=== PATIENT | male | born 1965 | race Caucasian/White ===

== ENCOUNTER 2017-03-02 19:12 | Inpatient (IN) | payer OTHER ==
[~2017-03-02] VITALS: Ht 188 cm; Wt 113.5 kg
[2017-03-02 19:13] VITALS: BP 176/93; PULSE 109; RESP 16; TEMP 99; O2SAT 100
[2017-03-02 20:48] LABS: AUTOMATED NEUTROPHIL # 4.9 TH/MM3 (1.8-7.7); BASOPHIL % 0.5 % (0.0-2.0); EOSINOPHIL # 0.2 TH/MM3 (0-0.4); EOSINOPHIL % 2.6 % (0.0-4.0); HEMATOCRIT 29.9 % (39.0-51.0); LYMPH % 18.9 % (9.0-44.0); LYMPHOCYTE # 1.4 TH/MM3 (1.0-4.8); MEAN CELL VOLUME 94.4 FL (80.0-100.0); MEAN CORPUSCULAR HEMOGLOBIN 32.5 PG (27.0-34.0); MEAN CORPUSCULAR HGB CONC 34.4 % (32.0-36.0); MONO % 10.2 % (0.0-8.0); NEUT % 67.8 % (16.0-70.0); PLATELET COUNT 144 TH/MM3 (150-450); RED BLOOD COUNT 3.17 MIL/MM3 (4.50-5.90); RED CELL DISTRIBUTION WIDTH 13.7 % (11.6-17.2); WHITE BLOOD COUNT 7.2 TH/MM3 (4.0-11.0)
[2017-03-02 20:51] LABS: HEMO FLAGS AUTO DIFF
--- NOTE | 2017-03-02 21:00 | RADRPT ---
EXAM DATE/TIME: 03/02/2017 20:33 [place] COMPARISON: No previous studies available for comparison. INDICATIONS : Left leg swelling and pain. MEDICAL HISTORY : Poisonous snake bite to left lateral calf x 1 wk ago. SURGICAL HISTORY : None. ENCOUNTER: Initial ACUITY: 1 week PAIN SCORE: 10/10 LOCATION: Left leg. TECHNIQUE: Venous ultrasound of the leg was performed from the inguinal ligament to the proximal calf. Real-rafael e, color Doppler and spectral tracing, compression and augmentation techniques were used. FINDINGS: There is normal compressibility of the deep venous system from the inguinal region to the proximal ca lf. No echogenic clot is seen in the lumen of the common femoral, femoral, popliteal, and posterior tibial veins. There is a normal response of the venous system to proximal and distal augmentation an d respiration. Diffuse subcutaneous edema noted of the left lower extremity. There are left inguinal lymph nodes tameka suring up to 8 x 15 x 23 mm. CONCLUSION: No DVT of the left lower extremity. Dwain Morrison MD on March 02, 2017 at 20:57 Board Certified Radiologist. This report was verified electronically.
--- NOTE | 2017-03-02 21:02 | PD ---
HPI Chief Complaint: Bite or Sting Time Seen by Provider: 19:33 Travel History International Travel<30 days: No Contact w/Intl Traveler<30days: No Traveled to known affect area: No History of Present Illness HPI So 51-year-old man, presents emergency department with worsening left leg pain swelling ecchymosis and bruising. States she was bit by a snake on February 22. He believes it was a rattlesnake. He was admitted to [facility] where he received treatment including 28 vials of CroFab. He was hospitalized for about 3-1/2 days or so. He was discharged about 5 days ago. He states since discharge he's had swelling is been waxing and waning. He's had worsening ecchymosis and bruising spreading up the leg. He developed a couple blisters that have been weeping. Pain is been pretty persistent and severe. He is worried that symptoms may been worsening and so he went to an urgent care today who referred him to the emergency department. He does endorse some subjective fevers last night. He's had some low back pains he thinks may be from being in bed for so long. History Past Medical History Medical History: Denies Significant Hx Social History Alcohol Use: Yes Tobacco Use: No Allergies-Medications (Allergen,Severity, Reaction): Coded Allergies: No Known Allergies (Unverified , 03/02/17) Review of Systems Except as stated in HPI: all other systems reviewed are Neg Physical Exam Narrative GENERAL: 31-year-old man, generally well-appearing. SKIN: Focused skin assessment warm/dry. Multiple areas of ecchymosis including the upper extremities which she attributes to previous IVs. He also has ecchymosis petechiae and swelling in the lower extremities detailed below. HEAD: Atraumatic. Normocephalic. EYES: Pupils equal and round. No scleral icterus. No injection or drainage. ENT: No nasal bleeding or discharge. Mucous membranes pink and moist. NECK: Trachea midline. No JVD. CARDIOVASCULAR: Regular rate and rhythm. No murmur appreciated. RESPIRATORY: No accessory muscle use. Clear to auscultation. Breath sounds equal bilaterally. GASTROINTESTINAL: Abdomen soft, non-tender, nondistended. Hepatic and splenic margins not palpable. MUSCULOSKELETAL: Obvious swelling and asymmetry of the left lower extremity. He is ecchymosis and bruising of the calf, as well as spreading up to the medial thigh and a little bit less on the lateral thigh. There is sluggish capillary refill in the left lower extremity about the foot. There is pitting edema and pulses are difficult to palpate. He has tenderness in the foot and the calf. He has strength in plantar and dorsiflexion of the foot that appears to be full although maybe a little bit limited due to pain. There is some petechiae on the calf and meade as well. There is a couple small areas of blistering on the distal posterior calf. Measurements include A: Midfoot 30 cm , B: Distal calf 29.5 cm, C: proximal calf 48.5 cm, D: Distal Thigh 57 cm. NEUROLOGICAL: Awake and alert. No obvious cranial nerve deficits. Motor grossly within normal limits. Normal speech. PSYCHIATRIC: Appropriate mood and affect; insight and judgment normal. Data Data Last Documented VS Vital Signs Date Time Temp Pulse Resp B/P Pulse Ox O2 Delivery O2 Flow Rate FiO2 03/02/17 19:13 99.0 109 16 176/93 100 Room Air Orders Complete Blood Count With Diff (03/02/17 19:46) Comprehensive Metabolic Panel (03/02/17 19:46) Act Partial Throm Time (Ptt) (03/02/17 19:46) Prothrombin Time / Inr (Pt) (03/02/17 19:46) Creatine Kinase (Cpk) (03/02/17 19:46) Fibrinogen (03/02/17 19:46) Iv Access Insert/Monitor (03/02/17 19:46) Us Leg Venous Doppler (03/02/17 ) Urinalysis - C+S If Indicated (03/02/17 19:47) Electrocardiogram (03/02/17 ) Fibrinogen (03/03/17 02:00) Complete Blood Count With Diff (03/03/17 02:00) Act Partial Throm Time (Ptt) (03/03/17 02:00) Prothrombin Time / Inr (Pt) (03/03/17 02:00) Sodium Chlor 0.9% 1000 Ml Inj (Ns 1000 M (03/02/17 21:30) Crotalidae Polyval Imm Jorge Inj (Crofab I (03/02/17 21:45) Labs Laboratory Tests Test 03/02/17 03/02/17 20:25 20:30 White Blood Count 7.2 TH/MM3 Red Blood Count 3.17 MIL/MM3 Hemoglobin 10.3 GM/DL Hematocrit 29.9 % Mean Corpuscular Volume 94.4 FL Mean Corpuscular Hemoglobin 32.5 PG Mean Corpuscular Hemoglobin 34.4 % Concent Red Cell Distribution Width 13.7 % Platelet Count 144 TH/MM3 Mean Platelet Volume 10.3 FL Neutrophils (%) (Auto) 67.8 % Lymphocytes (%) (Auto) 18.9 % Monocytes (%) (Auto) 10.2 % Eosinophils (%) (Auto) 2.6 % Basophils (%) (Auto) 0.5 % Neutrophils # (Auto) 4.9 TH/MM3 Lymphocytes # (Auto) 1.4 TH/MM3 Monocytes # (Auto) 0.7 TH/MM3 Eosinophils # (Auto) 0.2 TH/MM3 Basophils # (Auto) 0.0 TH/MM3 CBC Comment AUTO DIFF Differential Total Cells 100 Counted Neutrophils % (Manual) 60 % Band Neutrophils % 27 % Lymphocytes % 8 % Monocytes % 2 % Eosinophils % 1 % Neutrophils # (Manual) 6.4 TH/MM3 Metamyelocytes 1 % Myelocytes 1 % Nucleated Red Blood Cells 1 /100 WBC Differential Comment FINAL DIFF MANUAL Platelet Estimate LOW Platelet Morphology Comment NORMAL Prothrombin Time GREATER THAN 180.0 SEC Prothromb Time International GREATER THAN Ratio 14.9 RATIO Activated Partial GREATER THAN Thromboplast Time 277.5 SEC Sodium Level 138 MEQ/L Potassium Level 4.0 MEQ/L Chloride Level 102 MEQ/L Carbon Dioxide Level 26.0 MEQ/L Anion Gap 10 MEQ/L Blood Urea Nitrogen 13 MG/DL Creatinine 0.95 MG/DL Estimat Glomerular Filtration 84 ML/MIN Rate Random Glucose 100 MG/DL Calcium Level 8.8 MG/DL Total Bilirubin 2.3 MG/DL Aspartate Amino Transf 36 U/L (AST/SGOT) Alanine Aminotransferase 43 U/L (ALT/SGPT) Alkaline Phosphatase 54 U/L Total Creatine Kinase 229 U/L Total Protein 6.6 GM/DL Albumin 3.7 GM/DL Urine Color YELLOW Urine Turbidity CLEAR Urine pH 7.0 Urine Specific [place] 1.018 Urine Protein TRACE mg/dL Urine Glucose (UA) NEG mg/dL Urine Ketones NEG mg/dL Urine Occult Blood NEG Urine Nitrite NEG Urine Bilirubin NEG Urine Urobilinogen 8.0 MG/DL Urine Leukocyte Esterase NEG Urine RBC LESS THAN 1 /hpf Urine WBC 1 /hpf Urine Squamous Epithelial <1 /hpf Cells Urine Mucus FEW /lpf Microscopic Urinalysis Comment CULT NOT INDICATED MDM Medical Decision Making Medical Screen Exam Complete: Yes Emergency Medical Condition: Yes Medical Record Reviewed: Yes Interpretation(s) Previous labs: Platelet count was 178 on February 25 Hemoglobin was 11.9 on February 25 Fibrinogen was 2 51 mg/dL on February 25 Creatinine was 1.03 on February 25 CPK was 261 on February 22 PT was 12.7 seconds on February 25 PTT was 28.3 seconds on February 25 My review of EKG: Normal sinus rhythm at a rate of 73, incomplete right bundle branch block, normal axis, some inferior T-wave flattening and T-wave inversions , no definite evidence of acute ischemia. QRS 105, QTC 427. LABS: CBC remarkable for hemoglobin 10.3, white count 7.2 with 27% bandemia CMP is remarkable for total bili little bit elevated 2.3 Coags, PT, INR, APTT are off the chart UA has some bilirubin in the urine Ultrasounds negative for DVT. Differential Diagnosis Snake bite, hemolytic anemia, coagulopathy, rhabdomyolysis, compartment syndrome , other Narrative Course Medical decision making 51-year-old man, status post what appears to be a crotalid snakebite February 22. Treated with multiple vials of CroFab at [facility], discharged. I spoke with poison control, and with the on-call medical chemist. Or obtaining lab values. Patient will be monitored in the hospital. May need additional vials of CroFab if he has laboratory abnormalities. Elevate the leg. We'll get an ultrasound to rule out DVT. I don't see any evidence of infection. He is a lot of swelling that I don't think he has compartment syndrome at this point. We'll continue to monitor this. Critical Care Narrative Aggregate critical care time was 35 minutes. Time to perform other separately billable procedures was not included in the critical care time. My time did not include minutes spent treating any other patients simultaneously or on activities that did not directly contribute to the patient's treatment. The services I provided to this patient were to treat and/or prevent clinically significant deterioration that could result in: , rhabdo, compartment syndrome, loss of limb, worsening DIC I provided critical care services requiring my management, as noted below: Chart data review, documentation time, medication orders and management, vital sign assessments/reviewing monitor data, ordering and reviewing lab tests, ordering and interpreting/reviewing x-rays and diagnostic studies, care of the patient and discussion of the patient with the admitting physicians. Diagnosis Primary Impression: Snake bite Additional Impression: DIC (disseminated intravascular coagulation) Ifeanyi Gonzalez MD Mar 02, 2017 21:01
[2017-03-02 21:03] LABS: BLOOD, URINE NEG (NEG); COMMENT (UR) CULT NOT INDICATED; CULTURE IF INDICATED CULT NOT INDICATED; GLUCOSE,URINE NEG (NEG); KETONE, URINE NEG (NEG); MUCUS URINE FEW /lpf (OCC); NITRITE,URINE NEG (NEG); SQUAMOUS EPITHELIAL CELL URINE <1 /hpf (0-5); URINE COLOR YELLOW (YELLW/STRAW)
[2017-03-02 21:07] LABS: ALT (GPT) 43 U/L (12-78)
[2017-03-02 21:09] LABS: ALKALINE PHOSPHATASE 54 U/L (45-117); CREATINE KINASE 229 U/L (39-308); TOTAL BILIRUBIN ADULT 2.3 MG/DL (0.2-1.0)
[2017-03-02 21:25] LABS: ANION GAP 10 MEQ/L (5-15); AST (GOT) 36 U/L (15-37); BLOOD UREA NITROGEN 13 MG/DL (7-18); CHLORIDE 102 MEQ/L (98-107); GLOMERULAR FILTRATION RATE 84 ML/MIN (>89); SODIUM (NA) 138 MEQ/L (136-145)
[2017-03-02 21:27] LABS: BANDS 27 % (0-6); CORRECTED NUCLEATED RBC 1 /100 WBC (0-0); EOSINOPHILS 1 % (0-4); METAMYELOCYTES 1 % (0-1); MYELOCYTES 1 % (0-0); NEUTROPHIL # MANUAL DIFF 6.4 TH/MM3 (1.8-7.7); POLYS (SEG NEUTROPHILS) 60 % (16-70); WBC DIFF SAMPLE 100
[2017-03-02 21:29] LABS: PLATELET ESTIMATE SMEAR LOW (NORMAL); PLATELET MORPHOLOGY NORMAL (NORMAL); SCAN/DIFF FINAL DIFF MANUAL
[2017-03-02] MEDS ORDERED: SODIUM CHLOR 0.9% 1000 ML INJ 1,000 ML IV ONE (21:30)
[2017-03-02] MEDS ORDERED: CROTALIDAE FAB ANTIVENIN POLYVAL 1 GM VIAL IV ONE (21:45)
[2017-03-02 21:58] LABS: APTT (PATIENT) GREATER THAN 277.5 SEC (24.3-30.1); INTERNATIONAL NORMALIZED RATIO GREATER THAN 14.9 RATIO; PROTHROMBIN TIME - PATIENT GREATER THAN 180.0 SEC (9.8-11.6)
[2017-03-02] MEDS ORDERED: BUSP5TAB PO (22:27)
[2017-03-02] MEDS ORDERED: FAMO1TAB37 PO (22:27)
[2017-03-02] MEDS ORDERED: OXYC1TAB35 PO (22:27)
[2017-03-02 22:35] LABS: FIBRINOGEN LESS THAN 50 mg/dL (227-377)
[2017-03-02] MEDS ORDERED: MISCELLANEOUS NURSING INFORMATION XX SCH (22:45)
[2017-03-02] MEDS ORDERED: RESP: ALBUTEROL 2.5 MG/IPRATROPIUM 0.5 MG NEB (PRN) INH (22:45)
[2017-03-02] MEDS ORDERED: CHLORHEXIDINE GLUCONATE 2 % 1 PACK (2 CLOTHS) TOP PRN (22:45)
[2017-03-02] MEDS ORDERED: SODIUM CHLORIDE 0.9% FLUSH 10 ML FLUSH PRN (22:45)
[2017-03-02] MEDS ORDERED: BISACODYL 10 MG SUPP RECTAL PRN (22:45)
[2017-03-02] MEDS ORDERED: PROCHLORPERAZINE 25 MG SUPP RECTAL PRN (22:45)
[2017-03-02] MEDS ORDERED: ZOLPIDEM TARTRATE 5 MG TAB PO PRN (22:45)
[2017-03-02] MEDS ORDERED: METOCLOPRAMIDE HCL 10 MG/2 ML VIAL IV PRN (22:45)
[2017-03-02] MEDS ORDERED: MAGNESIUM HYDROXIDE SUSP 30 ML CUP PO PRN (22:45)
[2017-03-02] MEDS ORDERED: LACTULOSE SYRUP 20 GM/30 ML CUP PO PRN (22:45)
[2017-03-02] MEDS ORDERED: SENNOSIDES 8.6 MG TAB PO PRN (22:45)
--- NOTE | 2017-03-02 22:51 | HHI.HP ---
[facility] Service Critical Care Medicine Primary Care Physician [facility] Admission Diagnosis snake bite, DIC Diagnosis: Travel History International Travel<30 Days: No Contact w/Intl Traveler <30 Da: No Traveled to Known Affected Are: No History of Present Illness 51-year-old man without any significant past medical history, presents with worsening left leg pain swelling ecchymosis and bruising. He was bitten by a snake on February 22. He believes it was a rattlesnake. He was admitted to [facility] where he received treatment including 28 vials of CroFab. He was hospitalized for about 3-1/2 days or so and was discharged about 5 days ago. He states since discharge he's had swelling is been waxing and waning. He 's had worsening ecchymosis and bruising spreading up the leg. He developed a couple blisters that have been weeping. Pain is been pretty persistent and severe. In the emergency department his LFTs are elevated as well as coagulations and bilirubin. The Poison Control Center was contacted by ER attending with recommendations of another treatment with CroFab. Review of Systems Constitutional: COMPLAINS OF: Fatigue, DENIES: Diaphoretic episodes, Fever, Weight gain, Weight loss, Chills, Dizziness, Change in appetite, Night Sweats Endocrine: DENIES: Heat/cold intolerance, Polydipsia, Polyuria, Polyphagia Eyes: DENIES: Blurred vision, Diplopia, Eye inflammation, Eye pain, Vision loss , Photosensitivity, Double Vision Ears, nose, mouth, throat: DENIES: Tinnitus, Hearing loss, Vertigo, Nasal discharge, Oral lesions, Throat pain, Hoarseness, Ear Pain, Running Nose, Epistaxis, Sinus Pain, Toothache, Odynophagia Respiratory: DENIES: Apneas, Cough, Snoring, Wheezing, Hemoptysis, Sputum production, Shortness of breath Cardiovascular: DENIES: Chest pain, Palpitations, Syncope, Dyspnea on Exertion , PND, Lower Extremity Edema, Orthopnea, Claudication Genitourinary: DENIES: Sexual dysfunction, Urinary frequency, Urinary incontinence, Urgency, Hematuria, Dysuria, Nocturia, Penile Discharge, Testicular Pain, Testicular Swelling Musculoskeletal: COMPLAINS OF: Muscle aches, Joint Swelling, DENIES: Joint pain, Stiffness, Back pain, Neck pain Integumentary: DENIES: Abnormal pigmentation, Nail changes, Pruritus, Rash Hematologic/lymphatic: DENIES: Bruising, Lymphadenopathy Past Family Social History Allergies: Coded Allergies: No Known Allergies (Unverified , 03/02/17) Past Medical History None Past Surgical History None Reported Medications Reported Meds & Active Scripts Active Reported Pepcid (Famotidine) 20 Mg Tab 20 Mg PO BID Oxycodone-Acetaminophen 7.5-325 mg Tab 1 Tab PO Q6H PRN Buspirone (Buspirone HCl) 5 Mg Tab 5 Mg PO BID Active Ordered Medications Current Medications Medications (Trade) Dose Ordered Sig/Yasmin Route PRN Reason Start Time Stop Time Status Last Admin Dose Admin Buspirone HCl (Buspar) 5 mg BID PO 03/03/17 09:00 Famotidine 20 mg 20 mg BID PO 03/03/17 09:00 Sodium Chloride (NS 1000 ml Inj) 1,000 ml @ 84 mls/hr [id number] IV 03/02/17 22:44 03/02/17 23:30 Sodium Chloride (NS Flush) 2 ml UNSCH PRN .XX FLUSH AFTER USING IV ACCESS 03/02/17 22:45 Sodium Chloride (NS Flush) 2 ml BID .XX 03/03/17 09:00 Morphine Sulfate (Morphine Inj) 2 mg Q2H PRN IV PAIN SCALE 6 TO 10 03/02/17 22:45 Famotidine (Pepcid) 20 mg Q12HR PO 03/03/17 09:00 Ondansetron HCl (Zofran Inj) 4 mg Q6H PRN IV NAUSEA OR VOMITING 03/02/17 22:45 Metoclopramide HCl (Reglan Inj) 10 mg Q6H PRN IV NAUSEA OR VOMITING 03/02/17 22:45 Prochlorperazine (Compazine Supp) 25 mg Q12H PRN RECTAL NAUSEA OR VOMITING 03/02/17 22:45 Zolpidem Tartrate (Ambien) 5 mg HS PRN PO INSOMNIA 03/02/17 22:45 Heparin Sodium (Porcine) (Heparin Inj) 5,000 units Q12H SQ 03/02/17 23:00 Miscellaneous Information 1 [id number] XX 03/02/17 22:45 Chlorhexidine Gluconate (Chlorhexidine 2% Cloth) 3 pack Taper DAILY@04 TOP 03/03/17 04:00 02/27/18 03:59 Chlorhexidine Gluconate (Chlorhexidine 2% Cloth) 3 pack UNSCH PRN TOP HYGIENIC CARE 03/02/17 22:45 Senna/Docusate Sodium (Shari-Colace) 1 tab BID PO 03/03/17 09:00 Magnesium Hydroxide (Milk Of Magnesia Liq) 30 ml Q12H PRN PO MILD - MODERATE CONSTIPATION 03/02/17 22:45 Sennosides (Senokot) 17.2 mg Q12H PRN PO MODERATE - SEVERE CONSTIPATION 03/02/17 22:45 Bisacodyl (Dulcolax Supp) 10 mg DAILY PRN RECTAL SEVERE CONSITIPATION 03/02/17 22:45 Lactulose (Lactulose Liq) 30 ml DAILY PRN PO SEVERE CONSITIPATION 03/02/17 22:45 Family History Noncontributory Social History Negative 3 Physical Exam Vital Signs Vital Signs Date Time Temp Pulse Resp B/P Pulse Ox O2 Delivery O2 Flow Rate FiO2 03/02/17 19:13 99.0 109 16 176/93 100 Room Air Physical Exam GENERAL: 31-year-old man, generally well-appearing. SKIN: Focused skin assessment warm/dry. Multiple areas of ecchymosis including the upper extremities which she attributes to previous IVs. He also has ecchymosis petechiae and swelling in the lower extremities detailed below. HEAD: Atraumatic. Normocephalic. EYES: Pupils equal and round. No scleral icterus. No injection or drainage. ENT: No nasal bleeding or discharge. Mucous membranes pink and moist. NECK: Trachea midline. No JVD. CARDIOVASCULAR: Regular rate and rhythm. No murmur appreciated. RESPIRATORY: No accessory muscle use. Clear to auscultation. Breath sounds equal bilaterally. GASTROINTESTINAL: Abdomen soft, non-tender, nondistended. Hepatic and splenic margins not palpable. MUSCULOSKELETAL: Obvious swelling and asymmetry of the left lower extremity. He is ecchymosis and bruising of the calf, as well as spreading up to the medial thigh and a little bit less on the lateral thigh. There is sluggish capillary refill in the left lower extremity about the foot. There is pitting edema and pulses are difficult to palpate. He has tenderness in the foot and the calf. He has strength in plantar and dorsiflexion of the foot that appears to be full although maybe a little bit limited due to pain. There is some petechiae on the calf and meade as well. There is a couple small areas of blistering on the distal posterior calf. Measurements include A: Midfoot 30 cm , B: Distal calf 29.5 cm, C: proximal calf 48.5 cm, D: Distal Thigh 57 cm. NEUROLOGICAL: Awake and alert. No obvious cranial nerve deficits. Motor grossly within normal limits. Normal speech. Laboratory Laboratory Tests Test 03/02/17 03/02/17 20:25 20:30 White Blood Count 7.2 Red Blood Count 3.17 Hemoglobin 10.3 Hematocrit 29.9 Mean Corpuscular Volume 94.4 Mean Corpuscular Hemoglobin 32.5 Mean Corpuscular Hemoglobin 34.4 Concent Red Cell Distribution Width 13.7 Platelet Count 144 Mean Platelet Volume 10.3 Neutrophils (%) (Auto) 67.8 Lymphocytes (%) (Auto) 18.9 Monocytes (%) (Auto) 10.2 Eosinophils (%) (Auto) 2.6 Basophils (%) (Auto) 0.5 Neutrophils # (Auto) 4.9 Lymphocytes # (Auto) 1.4 Monocytes # (Auto) 0.7 Eosinophils # (Auto) 0.2 Basophils # (Auto) 0.0 CBC Comment AUTO DIFF Differential Total Cells 100 Counted Neutrophils % (Manual) 60 Band Neutrophils % 27 Lymphocytes % 8 Monocytes % 2 Eosinophils % 1 Neutrophils # (Manual) 6.4 Metamyelocytes 1 Myelocytes 1 Nucleated Red Blood Cells 1 Differential Comment FINAL DIFF MANUAL Platelet Estimate LOW Platelet Morphology Comment NORMAL Prothrombin Time GREATER THAN 180.0 Prothromb Time International GREATER THAN Ratio 14.9 Activated Partial GREATER THAN Thromboplast Time 277.5 Fibrinogen LESS THAN 50 Sodium Level 138 Potassium Level 4.0 Chloride Level 102 Carbon Dioxide Level 26.0 Anion Gap 10 Blood Urea Nitrogen 13 Creatinine 0.95 Estimat Glomerular Filtration 84 Rate Random Glucose 100 Calcium Level 8.8 Total Bilirubin 2.3 Aspartate Amino Transf 36 (AST/SGOT) Alanine Aminotransferase 43 (ALT/SGPT) Alkaline Phosphatase 54 Total Creatine Kinase 229 Total Protein 6.6 Albumin 3.7 Urine Color YELLOW Urine Turbidity CLEAR Urine pH 7.0 Urine Specific [place] 1.018 Urine Protein TRACE Urine Glucose (UA) NEG Urine Ketones NEG Urine Occult Blood NEG Urine Nitrite NEG Urine Bilirubin NEG Urine Urobilinogen 8.0 Urine Leukocyte Esterase NEG Urine RBC LESS THAN 1 Urine WBC 1 Urine Squamous Epithelial <1 Cells Urine Mucus FEW Microscopic Urinalysis Comment CULT NOT INDICATED Result Diagram: 03/02/17202403/02/172024 Imaging Last 24 hours Impressions Lower Extremity Ultrasound 03/02/17 0000 Signed Impressions: Service Date/Time: Thursday, March 02, 2017 20:33 - CONCLUSION: No DVT of the left lower extremity. Dwain Morrison MD Assessment and Plan Assessment and Plan Status post snakebite injury - CroFab dosing per poison center recommendations - Monitor hepatic profile - Monitor coagulopathy Coagulopathy - Monitor for signs of bleeding - Supportive care - Treating underlying condition with CroFab DVT GI prophylaxis - No pharmacological DVT prophylaxis due to APTT greater than 250 - Regular diet Critical Care: The total critical care time was 35 minutes. Time to perform other separately billable procedures was not included in the critical care time. Keo Valverde MD Mar 02, 2017 22:51
[2017-03-02] MEDS ORDERED: HEPARIN SODIUM - SQ 10,000 UNITS/ML VIAL SQ SCH (23:00)
[2017-03-02 23:16] VITALS: BP 148/84; PULSE 83; RESP 16; O2SAT 100
[2017-03-02] MEDS: SODIUM CHLOR 0.9% 1000 ML INJ 1,000 ML IV SCH (23:30)
[2017-03-03] VITALS (16 sets, daily range): BP systolic 99–130; BP diastolic 57–89; PULSE 59–92; RESP 16–24; TEMP 98.3–98.7; O2SAT 93–100
[2017-03-03 02:31] LABS: AUTOMATED NEUTROPHIL # 6.4 TH/MM3 (1.8-7.7); BASOPHIL % 0.5 % (0.0-2.0); EOSINOPHIL # 0.1 TH/MM3 (0-0.4); EOSINOPHIL % 1.3 % (0.0-4.0); HEMATOCRIT 27.2 % (39.0-51.0); LYMPH % 13.7 % (9.0-44.0); LYMPHOCYTE # 1.2 TH/MM3 (1.0-4.8); MEAN CELL VOLUME 95.1 FL (80.0-100.0); MEAN CORPUSCULAR HEMOGLOBIN 32.2 PG (27.0-34.0); MEAN CORPUSCULAR HGB CONC 33.9 % (32.0-36.0); MONO % 8.5 % (0.0-8.0); PLATELET COUNT 76 TH/MM3 (150-450); RED BLOOD COUNT 2.86 MIL/MM3 (4.50-5.90); RED CELL DISTRIBUTION WIDTH 13.3 % (11.6-17.2); WHITE BLOOD COUNT 8.5 TH/MM3 (4.0-11.0)
[2017-03-03 02:46] LABS: INTERNATIONAL NORMALIZED RATIO 3.2 RATIO; PROTHROMBIN TIME - PATIENT 36.9 SEC (9.8-11.6)
[2017-03-03 03:02] LABS: HEMO FLAGS AUTO DIFF
[2017-03-03 03:03] LABS: PLATELET ESTIMATE SMEAR LOW (NORMAL); PLATELET MORPHOLOGY NORMAL (NORMAL); SCAN/DIFF AUTO DIFF CONFIRMED; STOMATOCYTES 1+ (NORMAL)
[2017-03-03 03:04] LABS: FIBRINOGEN LESS THAN 50 mg/dL (227-377)
[2017-03-03] MEDS ORDERED: CROTALIDAE POLYVAL IMM FAB IV SCH ×2 (04:00→10:15)
[2017-03-03] MEDS ORDERED: SODIUM CHLOR 0.9% IV SCH ×2 (04:00→10:15)
[2017-03-03] MEDS: ONDANSETRON HCL 4 MG/2 ML VIAL IV PRN ×2 (04:19→04:22)
[2017-03-03] MEDS: MORPHINE SULFATE 4 MG/ML INJ IV PRN ×2 (04:20→04:22)
[2017-03-03 04:54] LABS: ANION GAP 10 MEQ/L (5-15); AST (GOT) 26 U/L (15-37); BICARBONATE 26.2 MEQ/L (21.0-32.0); BLOOD UREA NITROGEN 14 MG/DL (7-18); CHLORIDE 104 MEQ/L (98-107); GLOMERULAR FILTRATION RATE 95 ML/MIN (>89); MAGNESIUM 2.1 MG/DL (1.5-2.5); POTASSIUM 3.8 MEQ/L (3.5-5.1); SODIUM (NA) 140 MEQ/L (136-145)
[2017-03-03 04:58] LABS: ALKALINE PHOSPHATASE 43 U/L (45-117); ALT (GPT) 37 U/L (12-78); TOTAL BILIRUBIN ADULT 1.8 MG/DL (0.2-1.0)
[2017-03-03 06:46] LABS: AUTOMATED NEUTROPHIL # 4.7 TH/MM3 (1.8-7.7); BASOPHIL % 0.3 % (0.0-2.0); EOSINOPHIL # 0.1 TH/MM3 (0-0.4); EOSINOPHIL % 1.9 % (0.0-4.0); HEMATOCRIT 26.7 % (39.0-51.0); LYMPH % 19.6 % (9.0-44.0); LYMPHOCYTE # 1.3 TH/MM3 (1.0-4.8); MEAN CELL VOLUME 96.4 FL (80.0-100.0); MEAN CORPUSCULAR HEMOGLOBIN 31.4 PG (27.0-34.0); MEAN CORPUSCULAR HGB CONC 32.6 % (32.0-36.0); MONO % 8.7 % (0.0-8.0); NEUT % 69.5 % (16.0-70.0); PLATELET COUNT 90 TH/MM3 (150-450); RED BLOOD COUNT 2.77 MIL/MM3 (4.50-5.90); RED CELL DISTRIBUTION WIDTH 13.7 % (11.6-17.2); WHITE BLOOD COUNT 6.8 TH/MM3 (4.0-11.0)
[2017-03-03 06:52] LABS: HEMO FLAGS AUTO DIFF
[2017-03-03 07:31] LABS: SCAN/DIFF AUTO DIFF CONFIRMED
[2017-03-03 08:02] LABS: APTT (PATIENT) 25.5 SEC (24.3-30.1); INTERNATIONAL NORMALIZED RATIO 1.6 RATIO
--- NOTE | 2017-03-03 08:02 | EKG ---
Date Performed: 03/02/2017 Time Performed: 21:02:11 PTAGE: 51 years EKG: Sinus rhythm INCOMPLETE RIGHT BUNDLE BRANCH BLOCK BORDERLINE ECG NO PREVIOUS TRACING DOCTOR: Frantz Gillespie Interpretating Date/Time 03/03/2017 08:02:08
[2017-03-03 08:03] LABS: PROTHROMBIN TIME - PATIENT 17.8 SEC (9.8-11.6)
[2017-03-03] MEDS: busPIRone HCL 5 MG TAB PO SCH ×2 (09:00→21:15)
[2017-03-03] MEDS ORDERED: FAMOTIDINE 20 MG TAB PO SCH (09:00)
[2017-03-03] MEDS: DOCUSATE SODIUM 50 MG/SENNA 8.6 MG TAB PO SCH ×2 (10:21→21:00)
[2017-03-03] MEDS: FAMOTIDINE 20 MG TAB PO SCH ×2 (10:21→21:15)
[2017-03-03] MEDS: SODIUM CHLORIDE 0.9% FLUSH 10 ML FLUSH SCH ×2 (10:22→19:52)
[2017-03-03] MEDS: SODIUM CHLOR 0.9% 1000 ML INJ 1,000 ML IV SCH (11:46)
[2017-03-03] MEDS: CHLORHEXIDINE GLUCONATE 2 % 1 PACK (2 CLOTHS) TOP SCH (12:18)
[2017-03-03 13:34] LABS: APTT (PATIENT) 26.2 SEC (24.3-30.1)
--- NOTE | 2017-03-03 14:10 | HHI.CCPN ---
Subjective Remarks/Hospital Course 51-year-old man without any significant past medical history, presents with worsening left leg pain swelling ecchymosis and bruising. He was bitten by a snake on February 22. He believes it was a rattlesnake. He was admitted to [facility] where he received treatment including 28 vials of CroFab. He was hospitalized for about 3-1/2 days or so and was discharged about 5 days ago. He states since discharge he's had swelling is been waxing and waning. He 's had worsening ecchymosis and bruising spreading up the leg. He developed a couple blisters that have been weeping. Pain is been pretty persistent and severe. In the emergency department his LFTs are elevated as well as coagulations and bilirubin. The Poison Control Center was contacted by ER attending with recommendations of another treatment with CroFab. Subjective: 03/03: Pain well controlled at this time. CroFab infusing at this time.No change in clinical presentation. Left lower extremity edematous, hyperemic with ecchymotic bruising. Objective Vital Signs Date Time Temp Pulse Resp B/P Pulse Ox O2 Delivery O2 Flow Rate FiO2 03/03/17 12:19 72 18 99/60 97 03/03/17 07:47 Room Air 03/02/17 19:13 99.0 Result Diagram: 03/03/17 0625 03/03/17 0327 Imaging Last 24 hours Impressions Lower Extremity Ultrasound 03/02/17 0000 Signed Impressions: Service Date/Time: Thursday, March 02, 2017 20:33 - CONCLUSION: No DVT of the left lower extremity. Dwain Morrison MD Objective Remarks GENERAL: 31-year-old man, generally well-appearing, edematous left lower extremity SKIN: Focused skin assessment warm/dry. Multiple areas of ecchymosis including the upper extremities which she attributes to previous IVs. He also has ecchymosis petechiae and swelling in the lower extremities detailed below. HEAD: Atraumatic. Normocephalic. EYES: Pupils equal and round. No scleral icterus. No injection or drainage. ENT: No nasal bleeding or discharge. Mucous membranes pink and moist. NECK: Trachea midline. No JVD. CARDIOVASCULAR: Regular rate and rhythm. No murmur appreciated. RESPIRATORY: No accessory muscle use. Clear to auscultation. Breath sounds equal bilaterally. GASTROINTESTINAL: Abdomen soft, non-tender, nondistended. Hepatic and splenic margins not palpable. MUSCULOSKELETAL: Obvious swelling and asymmetry of the left lower extremity. He is ecchymosis and bruising of the calf, as well as spreading up to the medial thigh and a little bit less on the lateral thigh. There is sluggish capillary refill in the left lower extremity about the foot. There is pitting edema and pulses are difficult to palpate. He has tenderness in the foot and the calf. He has strength in plantar and dorsiflexion of the foot that appears to be full although maybe a little bit limited due to pain. There is some petechiae on the calf and meade as well. There is a couple small areas of blistering on the distal posterior calf. Measurements include A: Midfoot 30 cm , B: Distal calf 29.5 cm, C: proximal calf 48.5 cm, D: Distal Thigh 57 cm. ecchymotic bruising from the left hip through the left coronary NEUROLOGICAL: Awake and alert. No obvious cranial nerve deficits. Motor grossly within normal limits. Normal speech. Urinary Catheter: No Vascular Central Line Catheter: No A/P Assessment and Plan Status post snakebite-presumable pit viper injury - CroFab dosing per poison center recommendations - Monitor hepatic profile - Monitor coagulopathy -Repeat coags post dosing of CroFab-additional dosing per poison control recommendations --Maintain bed rest Coagulopathy - Monitor for signs of bleeding - Supportive care - Treating underlying condition with CroFab, currently 4 vials-May repeat pending coagulation panel results with maintenance dosing DVT GI prophylaxis - No pharmacological DVT prophylaxis due to APTT greater than 250 - Regular diet Dispo: Contacted poison control Dr. Domingo Jolley. Plan for obtaining labs at 1500, depending on levels continuation of maintenance dose CroFab per their recommendations Discussed with patient in [employer] CH[employer] ASSISTANT at bedside. Critical Care: This patient remains critically ill with one or more organ systems which are or may become a threat to life. I have spent in excess of 30 minutes discontinuously in the care and management of this patient. This time is exclusive of procedures, and includes, but is not limited to, evaluation of the patient, review of the medical record, discussions with family, consultants, nursing staff, or respiratory therapy, and documentation in the medical record. Physician Sandra Judge MD Mar 03, 2017 14:10
[2017-03-03 17:52] LABS: HEMATOCRIT 27.5 % (39.0-51.0); MEAN CELL VOLUME 99.3 FL (80.0-100.0); MEAN CORPUSCULAR HEMOGLOBIN 31.9 PG (27.0-34.0); MEAN CORPUSCULAR HGB CONC 32.2 % (32.0-36.0); PLATELET COUNT 99 TH/MM3 (150-450); RED BLOOD COUNT 2.77 MIL/MM3 (4.50-5.90); RED CELL DISTRIBUTION WIDTH 14.4 % (11.6-17.2); WHITE BLOOD COUNT 5.8 TH/MM3 (4.0-11.0)
[2017-03-03 17:53] LABS: REVIEW FLAG FINAL
[2017-03-03 18:16] LABS: APTT (PATIENT) 19.1 SEC (24.3-30.1); INTERNATIONAL NORMALIZED RATIO 1.2 RATIO; PROTHROMBIN TIME - PATIENT 13.3 SEC (9.8-11.6)
[2017-03-03] MEDS: SODIUM CHLOR 0.9% IV SCH ×2 (19:51→23:59)
[2017-03-03] MEDS: CROTALIDAE POLYVAL IMM FAB IV SCH ×2 (19:51→23:59)
[2017-03-04] VITALS (17 sets, daily range): BP systolic 100–155; BP diastolic 62–89; PULSE 60–80; RESP 13–24; TEMP 98.3–98.4; O2SAT 92–99
[2017-03-04] MEDS: SODIUM CHLOR 0.9% 1000 ML INJ 1,000 ML IV SCH ×3 (00:05→21:54)
[2017-03-04 00:44] LABS: AUTOMATED NEUTROPHIL # 3.6 TH/MM3 (1.8-7.7); BASOPHIL # 0.1 TH/MM3 (0-0.2); EOSINOPHIL # 0.2 TH/MM3 (0-0.4); EOSINOPHIL % 2.8 % (0.0-4.0); HEMATOCRIT 31.1 % (39.0-51.0); HEMO FLAGS DIFF FINAL; LYMPH % 27.6 % (9.0-44.0); LYMPHOCYTE # 1.7 TH/MM3 (1.0-4.8); MEAN CELL VOLUME 97.3 FL (80.0-100.0); MEAN CORPUSCULAR HEMOGLOBIN 31.8 PG (27.0-34.0); MEAN CORPUSCULAR HGB CONC 32.7 % (32.0-36.0); MONO % 8.9 % (0.0-8.0); NEUT % 59.7 % (16.0-70.0); PLATELET COUNT 110 TH/MM3 (150-450); RED CELL DISTRIBUTION WIDTH 13.8 % (11.6-17.2); WHITE BLOOD COUNT 6.1 TH/MM3 (4.0-11.0)
[2017-03-04 01:15] LABS: APTT (PATIENT) 23.9 SEC (24.3-30.1); INTERNATIONAL NORMALIZED RATIO 1.1 RATIO; PROTHROMBIN TIME - PATIENT 11.9 SEC (9.8-11.6)
[2017-03-04] MEDS: CHLORHEXIDINE GLUCONATE 2 % 1 PACK (2 CLOTHS) TOP SCH (04:00)
[2017-03-04] MEDS: SODIUM CHLOR 0.9% IV SCH ×5 (04:28→23:05)
[2017-03-04] MEDS: CROTALIDAE POLYVAL IMM FAB IV SCH ×5 (04:28→23:05)
[2017-03-04 06:24] LABS: AUTOMATED NEUTROPHIL # 3.5 TH/MM3 (1.8-7.7); BASOPHIL % 0.7 % (0.0-2.0); EOSINOPHIL # 0.1 TH/MM3 (0-0.4); EOSINOPHIL % 2.6 % (0.0-4.0); HEMATOCRIT 27.6 % (39.0-51.0); HEMO FLAGS DIFF FINAL; LYMPH % 25.1 % (9.0-44.0); LYMPHOCYTE # 1.4 TH/MM3 (1.0-4.8); MEAN CELL VOLUME 97.6 FL (80.0-100.0); MEAN CORPUSCULAR HEMOGLOBIN 31.9 PG (27.0-34.0); MEAN CORPUSCULAR HGB CONC 32.7 % (32.0-36.0); MONO % 7.7 % (0.0-8.0); NEUT % 63.9 % (16.0-70.0); PLATELET COUNT 102 TH/MM3 (150-450); RED BLOOD COUNT 2.83 MIL/MM3 (4.50-5.90); RED CELL DISTRIBUTION WIDTH 13.8 % (11.6-17.2); WHITE BLOOD COUNT 5.5 TH/MM3 (4.0-11.0)
[2017-03-04 06:34] LABS: BICARBONATE 28.6 MEQ/L (21.0-32.0); POTASSIUM 3.9 MEQ/L (3.5-5.1)
[2017-03-04 06:44] LABS: APTT (PATIENT) 25.6 SEC (24.3-30.1); INTERNATIONAL NORMALIZED RATIO 1.1 RATIO; PROTHROMBIN TIME - PATIENT 11.9 SEC (9.8-11.6)
[2017-03-04] MEDS: busPIRone HCL 5 MG TAB PO SCH ×2 (08:41→20:46)
[2017-03-04] MEDS: FAMOTIDINE 20 MG TAB PO SCH ×2 (08:41→20:46)
[2017-03-04] MEDS: SODIUM CHLORIDE 0.9% FLUSH 10 ML FLUSH SCH ×2 (08:42→20:46)
[2017-03-04] MEDS: DOCUSATE SODIUM 50 MG/SENNA 8.6 MG TAB PO SCH ×2 (08:42→20:46)
--- NOTE | 2017-03-04 11:38 | HHI.CCPN ---
Subjective Remarks/Hospital Course 51-year-old man without any significant past medical history, presents with worsening left leg pain swelling ecchymosis and bruising. He was bitten by a snake on February 22. He believes it was a rattlesnake. He was admitted to [facility] where he received treatment including 28 vials of CroFab. He was hospitalized for about 3-1/2 days or so and was discharged about 5 days ago. He states since discharge he's had swelling is been waxing and waning. He 's had worsening ecchymosis and bruising spreading up the leg. He developed a couple blisters that have been weeping. Pain is been pretty persistent and severe. In the emergency department his LFTs are elevated as well as coagulations and bilirubin. The Poison Control Center was contacted by ER attending with recommendations of another treatment with CroFab. Subjective: 03/03: Pain well controlled at this time. CroFab infusing at this time.No change in clinical presentation. Left lower extremity edematous, hyperemic with ecchymotic bruising. 03/04: Patient complaint of pain specifically left posterior knee. Patient is reticent to take narcotics, non-narcotic analgesia added to medication regimen. The patient continues on CroFab as a maintenance dosing 1 g every 4 hours for the next 24 hours. Coagulation results within normal limits, INR 1.1, platelets 102. Fibrinogen level still noted to be subtherapeutic. Serial coagulation studies continued every 6 hours per Poison Control recommendations. Objective Vital Signs Date Time Temp Pulse Resp B/P Pulse Ox O2 Delivery O2 Flow Rate FiO2 03/04/17 10:00 79 03/04/17 10:00 20 128/67 98 03/04/17 08:00 98.4 03/03/17 07:47 Room Air Intake and Output 03/03/17 03/03/17 03/03/17 07:59 15:59 23:59 Intake Total 1840 ml 1106 ml Output Total 600 ml 1000 ml Balance 1240 ml 106 ml Result Diagram: 03/04/17 0508 03/04/17 0508 Imaging Last 24 hours Impressions Lower Extremity Ultrasound 03/02/17 0000 Signed Impressions: Service Date/Time: Thursday, March 02, 2017 20:33 - CONCLUSION: No DVT of the left lower extremity. Dwain Morrison MD Objective Remarks GENERAL: 31-year-old man, generally well-appearing, edematous left lower extremity SKIN: Focused skin assessment warm/dry. Multiple areas of ecchymosis including the upper extremities which she attributes to previous IVs. He also has ecchymosis petechiae and swelling in the lower extremities detailed below. HEAD: Atraumatic. Normocephalic. EYES: Pupils equal and round. No scleral icterus. No injection or drainage. ENT: No nasal bleeding or discharge. Mucous membranes pink and moist. NECK: Trachea midline. No JVD. CARDIOVASCULAR: Regular rate and rhythm. No murmur appreciated. RESPIRATORY: No accessory muscle use. Clear to auscultation. Breath sounds equal bilaterally. GASTROINTESTINAL: Abdomen soft, non-tender, nondistended. Hepatic and splenic margins not palpable. MUSCULOSKELETAL: Obvious swelling and asymmetry of the left lower extremity. He is ecchymosis and bruising of the calf, as well as spreading up to the medial thigh and a little bit less on the lateral thigh. There is sluggish capillary refill in the left lower extremity about the foot. There is pitting edema and pulses are difficult to palpate. He has tenderness in the foot and the calf. He has strength in plantar and dorsiflexion of the foot that appears to be full although maybe a little bit limited due to pain. There is some petechiae on the calf and meade as well. There is a couple small areas of blistering on the distal posterior calf. Measurements include A: Midfoot 30 cm , B: Distal calf 29.5 cm, C: proximal calf 48.5 cm, D: Distal Thigh 57 cm. ecchymotic bruising from the left hip improving. Edema unchanged since admission. NEUROLOGICAL: Awake and alert. No obvious cranial nerve deficits. Motor grossly within normal limits. Normal speech. Urinary Catheter: No Vascular Central Line Catheter: No A/P Assessment and Plan Status post snakebite-presumable pit viper injury - CroFab dosing per poison center recommendations - Monitor hepatic profile - Monitor coagulopathy -Repeat coags every 6 hours post dosing of CroFab-additional dosing per poison control recommendations. Continues infusion CroFab 1 g every 4 hours for next 24 hours --Maintain bed rest Coagulopathy - Monitor for signs of bleeding, coag profile improving. - Supportive care - Treating underlying condition with CroFab, currently 4 vials-May repeat pending coagulation panel results with maintenance dosing DVT GI prophylaxis - No pharmacological DVT prophylaxis due to APTT greater than 250 - Regular diet Dispo: Contacted poison control Dr. Domingo Jolley. Continuation of maintenance dose CroFab per their recommendations Discussed with patient and TECHNICAL ADJUSTER at bedside. Critical Care: Level 3 Physician Sandra Judge MD Mar 04, 2017 11:38
[2017-03-04] MEDS ORDERED: traMADol HCL 50 MG TAB PO PRN (11:45)
[2017-03-04] MEDS ORDERED: ACETAMINOPHEN 1000 MG/100 ML VIAL IV PRN (11:45)
[2017-03-04 13:21] LABS: BASOPHIL # 0.1 TH/MM3 (0-0.2); BASOPHIL % 0.7 % (0.0-2.0); EOSINOPHIL # 0.2 TH/MM3 (0-0.4); EOSINOPHIL % 2.5 % (0.0-4.0); HEMATOCRIT 27.9 % (39.0-51.0); HEMO FLAGS DIFF FINAL; LYMPH % 18.4 % (9.0-44.0); LYMPHOCYTE # 1.3 TH/MM3 (1.0-4.8); MEAN CELL VOLUME 97.5 FL (80.0-100.0); MEAN CORPUSCULAR HEMOGLOBIN 31.8 PG (27.0-34.0); MEAN CORPUSCULAR HGB CONC 32.6 % (32.0-36.0); MONO % 8.7 % (0.0-8.0); NEUT % 69.7 % (16.0-70.0); PLATELET COUNT 130 TH/MM3 (150-450); RED BLOOD COUNT 2.86 MIL/MM3 (4.50-5.90); WHITE BLOOD COUNT 7.2 TH/MM3 (4.0-11.0)
[2017-03-04 13:25] LABS: APTT (PATIENT) 25.2 SEC (24.3-30.1); PROTHROMBIN TIME - PATIENT 11.6 SEC (9.8-11.6)
[2017-03-04 19:05] LABS: BASOPHIL # 0.1 TH/MM3 (0-0.2); BASOPHIL % 0.9 % (0.0-2.0); EOSINOPHIL # 0.2 TH/MM3 (0-0.4); EOSINOPHIL % 2.7 % (0.0-4.0); HEMATOCRIT 27.7 % (39.0-51.0); HEMO FLAGS DIFF FINAL; LYMPH % 21.7 % (9.0-44.0); LYMPHOCYTE # 1.6 TH/MM3 (1.0-4.8); MEAN CELL VOLUME 97.3 FL (80.0-100.0); MEAN CORPUSCULAR HEMOGLOBIN 32.1 PG (27.0-34.0); MONO % 6.8 % (0.0-8.0); NEUT % 67.9 % (16.0-70.0); PLATELET COUNT 129 TH/MM3 (150-450); RED BLOOD COUNT 2.85 MIL/MM3 (4.50-5.90); WHITE BLOOD COUNT 7.4 TH/MM3 (4.0-11.0)
[2017-03-04 19:12] LABS: APTT (PATIENT) 25.6 SEC (24.3-30.1); PROTHROMBIN TIME - PATIENT 11.3 SEC (9.8-11.6)
[2017-03-05] VITALS (8 sets, daily range): BP systolic 106–134; BP diastolic 61–78; PULSE 60–70; RESP 16–18; TEMP 96.7–98.1; O2SAT 95–100
[2017-03-05] MEDS: CHLORHEXIDINE GLUCONATE 2 % 1 PACK (2 CLOTHS) TOP SCH (00:16)
[2017-03-05 01:41] LABS: APTT (PATIENT) 23.6 SEC (24.3-30.1); PROTHROMBIN TIME - PATIENT 11.3 SEC (9.8-11.6)
[2017-03-05 01:46] LABS: AUTOMATED NEUTROPHIL # 5.2 TH/MM3 (1.8-7.7); BASOPHIL # 0.1 TH/MM3 (0-0.2); BASOPHIL % 0.6 % (0.0-2.0); EOSINOPHIL # 0.2 TH/MM3 (0-0.4); EOSINOPHIL % 2.3 % (0.0-4.0); HEMATOCRIT 27.8 % (39.0-51.0); HEMO FLAGS DIFF FINAL; LYMPH % 25.8 % (9.0-44.0); LYMPHOCYTE # 2.1 TH/MM3 (1.0-4.8); MEAN CELL VOLUME 95.4 FL (80.0-100.0); MEAN CORPUSCULAR HEMOGLOBIN 32.1 PG (27.0-34.0); MEAN CORPUSCULAR HGB CONC 33.6 % (32.0-36.0); MONO % 6.8 % (0.0-8.0); NEUT % 64.5 % (16.0-70.0); PLATELET COUNT 126 TH/MM3 (150-450); RED BLOOD COUNT 2.91 MIL/MM3 (4.50-5.90); RED CELL DISTRIBUTION WIDTH 13.7 % (11.6-17.2); WHITE BLOOD COUNT 8.1 TH/MM3 (4.0-11.0)
[2017-03-05] MEDS: CROTALIDAE POLYVAL IMM FAB IV SCH ×2 (05:06→12:06)
[2017-03-05] MEDS: SODIUM CHLOR 0.9% IV SCH ×2 (05:06→12:06)
[2017-03-05] MEDS: busPIRone HCL 5 MG TAB PO SCH ×2 (08:47→19:41)
[2017-03-05] MEDS: FAMOTIDINE 20 MG TAB PO SCH ×2 (08:47→19:41)
[2017-03-05] MEDS: SODIUM CHLORIDE 0.9% FLUSH 10 ML FLUSH SCH ×2 (09:00→19:41)
[2017-03-05] MEDS: DOCUSATE SODIUM 50 MG/SENNA 8.6 MG TAB PO SCH ×2 (09:00→19:42)
--- NOTE | 2017-03-05 09:26 | HHI.PR ---
Subjective Remarks Follow-up snakebite and DIC Patient stated that throughout the hospital course his leg does looks better but from yesterday he stated that he feels it is the same. He continues to have swelling and pain on his left lower ext. Patient remains afebrile. He has no other complaints. Objective Vitals Vital Signs Date Time Temp Pulse Resp B/P Pulse Ox O2 Delivery O2 Flow Rate FiO2 03/05/17 08:00 97.6 67 18 124/76 97 03/05/17 07:20 60 03/05/17 06:35 97.1 67 17 121/73 96 03/05/17 00:00 97.3 64 17 134/76 100 03/04/17 22:38 98 03/04/17 21:00 64 17 116/71 98 03/04/17 20:00 70 03/04/17 20:00 70 18 126/81 99 03/04/17 18:00 80 03/04/17 16:00 70 03/04/17 16:00 98.4 70 17 111/68 96 03/04/17 15:00 60 15 113/72 95 03/04/17 14:00 65 03/04/17 14:00 65 13 114/62 94 03/04/17 13:00 79 21 118/72 98 03/04/17 12:00 98.3 71 24 133/82 99 03/04/17 12:00 71 03/04/17 10:00 79 03/04/17 10:00 79 20 128/67 98 I/O 03/04/17 03/04/17 03/04/17 03/05/17 03/05/17 03/05/17 07:00 15:00 23:00 07:00 15:00 23:00 Intake Total 1312 ml 1900 ml 360 ml 240 ml Output Total 1450 ml 1700 ml 1500 ml 1300 ml Balance -138 ml 200 ml -1140 ml -1060 ml Intake Oral 240 ml 600 ml 360 ml 240 ml IV Total 1072 ml 1300 ml Output Urine Total 1450 ml 1700 ml 1500 ml 1300 ml # Voids 2 3 2 # Bowel Movements 0 0 Result Diagram: 03/05/17 0048 03/04/17 0508 Objective Remarks GENERAL: in NAD SKIN: Erythema and swelling from the knee down. Tenderness palpation with moderate pressure. HEAD: Normocephalic. EYES: No scleral icterus. No injection or drainage. NECK: Supple, trachea midline. No JVD or lymphadenopathy. CARDIOVASCULAR: Regular rate and rhythm without murmurs, gallops, or rubs. RESPIRATORY: Breath sounds equal bilaterally. No accessory muscle use. GASTROINTESTINAL: Abdomen soft, non-tender, nondistended. MUSCULOSKELETAL: No cyanosis, or edema. BACK: Nontender without obvious deformity. No CVA tenderness. Medications and IVs Current Medications Sodium Chloride (NS 1000 ml Inj) 1,000 ml @ 2,000 mls/hr Q30M ONCE IV Last administered on 03/02/17 21:40; Start 03/02/17 at 21:30; Stop 03/02/17 at 21:59 ; Status DC Crotalidae Polyvalent Antivenin (Crofab Inj) 6 gm ONCE ONCE IV Last administered on 03/02/17 22:50; Start 03/02/17 at 21:45; Stop 03/02/17 at 21:46 ; Status DC Buspirone HCl (Buspar) 5 mg BID PO Last administered on 03/05/17 08:47; Start 03/03/17 at 09:00 Famotidine 20 mg 20 mg BID PO Last administered on 03/05/17 08:47; Start 03/03 at 09:00 Sodium Chloride (NS 1000 ml Inj) 1,000 ml @ 84 mls/hr [id number] IV Last administered on 03/04/17 21:54; Start 03/02/17 at 22:44 Sodium Chloride (NS Flush) 2 ml UNSCH PRN .XX FLUSH AFTER USING IV ACCESS Last administered on 03/04/17 08:41; Start 03/02/17 at 22:45 Sodium Chloride (NS Flush) 2 ml BID .XX Last administered on 03/04/17 20:46; Start 03/03/17 at 09:00 Morphine Sulfate (Morphine Inj) 2 mg Q2H PRN IV PAIN SCALE 6 TO 10 Last administered on 03/03/17 04:22; Start 03/02/17 at 22:45 Famotidine (Pepcid) 20 mg Q12HR PO ; Start 03/03/17 at 09:00; Stop 03/03/17 at 15:01; Status DC Ondansetron HCl (Zofran Inj) 4 mg Q6H PRN IV NAUSEA OR VOMITING Last administered on 03/03/17 04:22; Start 03/02/17 at 22:45 Metoclopramide HCl (Reglan Inj) 10 mg Q6H PRN IV NAUSEA OR VOMITING; Start at 22:45 Prochlorperazine (Compazine Supp) 25 mg Q12H PRN RECTAL NAUSEA OR VOMITING; Start 03/02/17 at 22:45 Zolpidem Tartrate (Ambien) 5 mg HS PRN PO INSOMNIA; Start 03/02/17 at 22:45 Albuterol/ Ipratropium (Duoneb Neb) 1 ampule Q2HR NEB PRN INH WHEEZING; Start 03/02/17 at 22:45 Heparin Sodium (Porcine) (Heparin Inj) 5,000 units Q12H SQ ; Start 03/02/17 at 23:00; Stop 03/03/17 at 05:38; Status DC Miscellaneous Information 1 Q361D XX Last administered on 03/03/17 12:18; Start 03/02/17 at 22:45 Chlorhexidine Gluconate (Chlorhexidine 2% Cloth) 3 pack Taper DAILY@04 TOP ; Start 03/03/17 at 04:00; Stop 02/27/18 at 03:59 Chlorhexidine Gluconate (Chlorhexidine 2% Cloth) 3 pack UNSCH PRN TOP HYGIENIC CARE; Start 03/02/17 at 22:45 Senna/Docusate Sodium (Shari-Colace) 1 tab BID PO Last administered on 10:21; Start 03/03/17 at 09:00 Magnesium Hydroxide (Milk Of Magnesia Liq) 30 ml Q12H PRN PO MILD - MODERATE CONSTIPATION; Start 03/02/17 at 22:45 Sennosides (Senokot) 17.2 mg Q12H PRN PO MODERATE - SEVERE CONSTIPATION; Start 03/02/17 at 22:45 Bisacodyl (Dulcolax Supp) 10 mg DAILY PRN RECTAL SEVERE CONSITIPATION; Start at 22:45 Lactulose 30 ml 30 ml DAILY PRN PO SEVERE CONSITIPATION; Start 03/02/17 at 22: 45 Crotalidae Polyvalent Antivenin 6 gm/ Sodium Chloride 250 ml @ 250 mls/hr UNSCH X1 IV Last administered on 03/03/17 04:21; Start 03/03/17 at 04:00; Stop 03/03/17 at 06:00; Status DC Crotalidae Polyvalent Antivenin/Sodium Chloride (Crofab Inj/NS 250 ml Inj) 250 ml @ 250 mls/hr UNSCH X1 IV Last administered on 03/03/17 12:17; Start 03/03 at 10:15; Stop 03/03/17 at 18:00; Status DC Oxycodone HCl 10 mg 10 mg Q4H PRN PO PAIN LESS THAN/EQUAL TO 5 Last administered on 03/05/17 08:51; Start 03/03/17 at 15:00 Crotalidae Polyvalent Antivenin/Sodium Chloride (Crofab Inj/NS 250 ml Inj) 250 ml @ 62.5 mls/hr Q4H IV Last administered on 03/04/17 17:04; Start 03/03/17 at 20:00; Stop 03/04/17 at 19:59; Status DC Acetaminophen (Ofirmev Inj) 1,000 mg Q6H PRN IV PAIN SCALE 7 TO 10; Start 03/04 at 11:45 Tramadol HCl 50 mg 50 mg Q6H PRN PO PAIN SCALE 1 TO 5; Start 03/04/17 at 11:45 Crotalidae Polyvalent Antivenin/Sodium Chloride (Crofab Inj/NS 250 ml Inj) 250 ml @ 250 mls/hr Q6H IV Last administered on 03/05/17 05:06; Start 03/04/17 at 23:00; Stop 03/05/17 at 11:59 A/P Assessment and Plan Status post snakebite-presumable pit viper injury - CroFab dosing per poison center recommendations. Patient completed CroFab every 6 hours for 3 doses today around 1 pm. - d/w poison control over the phone in [place] and they stated that they recommend repeat labs 1 hour after final dose and told nurse to call back once results are in. Per poison control she stated I did not need to call back. -continue to monitor per poison control. Coagulopathy - Monitor for signs of bleeding, coag profile improving. - Supportive care - Treating underlying condition with CroFab, currently 4 vials-May repeat pending coagulation panel results with maintenance dosing DVT GI prophylaxis - No pharmacological DVT prophylaxis due to APTT greater than 250 - Regular diet Discharge Planning Contacted poison control and they stated they told nurse already to call back with post crofab results. continue treatment per poison control. Carie Joya MD Mar 05, 2017 09:25
[2017-03-05] MEDS: SODIUM CHLOR 0.9% 1000 ML INJ 1,000 ML IV SCH ×2 (12:08→20:16)
[2017-03-05 12:46] LABS: HEMATOCRIT 26.7 % (39.0-51.0); MEAN CELL VOLUME 96.3 FL (80.0-100.0); MEAN CORPUSCULAR HGB CONC 33.3 % (32.0-36.0); PLATELET COUNT 136 TH/MM3 (150-450); RED BLOOD COUNT 2.78 MIL/MM3 (4.50-5.90); RED CELL DISTRIBUTION WIDTH 13.7 % (11.6-17.2); REVIEW FLAG FINAL; WHITE BLOOD COUNT 7.1 TH/MM3 (4.0-11.0)
[2017-03-05 12:58] LABS: BICARBONATE 28.7 MEQ/L (21.0-32.0); POTASSIUM 3.3 MEQ/L (3.5-5.1)
[2017-03-05 13:01] LABS: TOTAL BILIRUBIN ADULT 1.3 MG/DL (0.2-1.0)
[2017-03-05 13:04] LABS: PROTHROMBIN TIME - PATIENT 11.2 SEC (9.8-11.6)
[2017-03-05 13:05] LABS: APTT (PATIENT) 19.5 SEC (24.3-30.1)
[2017-03-05 16:11] LABS: HEMATOCRIT 28.2 % (39.0-51.0); MEAN CELL VOLUME 98.7 FL (80.0-100.0); MEAN CORPUSCULAR HEMOGLOBIN 32.4 PG (27.0-34.0); MEAN CORPUSCULAR HGB CONC 32.8 % (32.0-36.0); PLATELET COUNT 116 TH/MM3 (150-450); RED BLOOD COUNT 2.86 MIL/MM3 (4.50-5.90); RED CELL DISTRIBUTION WIDTH 14.2 % (11.6-17.2); REVIEW FLAG FINAL; WHITE BLOOD COUNT 7.1 TH/MM3 (4.0-11.0)
[2017-03-05 19:23] LABS: APTT (PATIENT) 22.9 SEC (24.3-30.1); PROTHROMBIN TIME - PATIENT 10.7 SEC (9.8-11.6)
[2017-03-06] MEDS: CHLORHEXIDINE GLUCONATE 2 % 1 PACK (2 CLOTHS) TOP SCH (01:15)
[2017-03-06 04:30] VITALS: BP 110/70; PULSE 69; RESP 16; TEMP 97.3; O2SAT 97
[2017-03-06 06:22] LABS: AUTOMATED NEUTROPHIL # 4.9 TH/MM3 (1.8-7.7); BASOPHIL % 0.6 % (0.0-2.0); EOSINOPHIL # 0.2 TH/MM3 (0-0.4); EOSINOPHIL % 2.5 % (0.0-4.0); HEMATOCRIT 26.8 % (39.0-51.0); HEMO FLAGS DIFF FINAL; LYMPH % 24.5 % (9.0-44.0); LYMPHOCYTE # 1.8 TH/MM3 (1.0-4.8); MEAN CELL VOLUME 96.5 FL (80.0-100.0); MEAN CORPUSCULAR HEMOGLOBIN 31.9 PG (27.0-34.0); MEAN CORPUSCULAR HGB CONC 33.1 % (32.0-36.0); MONO % 7.1 % (0.0-8.0); NEUT % 65.3 % (16.0-70.0); PLATELET COUNT 156 TH/MM3 (150-450); RED BLOOD COUNT 2.78 MIL/MM3 (4.50-5.90); RED CELL DISTRIBUTION WIDTH 14.3 % (11.6-17.2); WHITE BLOOD COUNT 7.5 TH/MM3 (4.0-11.0)
[2017-03-06 06:30] LABS: APTT (PATIENT) 26.8 SEC (24.3-30.1); PROTHROMBIN TIME - PATIENT 11.2 SEC (9.8-11.6)
[2017-03-06 06:42] LABS: BICARBONATE 32.6 MEQ/L (21.0-32.0); POTASSIUM 3.8 MEQ/L (3.5-5.1)
[2017-03-06 08:00] VITALS: BP 126/70; PULSE 66; RESP 18; TEMP 97.4; O2SAT 98
--- NOTE | 2017-03-06 09:29 | HHI.PR ---
Subjective Remarks f/u for complication from viper bite patient stated he is very frustrated that the edema has no resolved yet. he stated pain has improved and his sensation is intact. patient remains afebrile. he stated when he ambulates there is increase swelling. Objective Vitals Vital Signs Date Time Temp Pulse Resp B/P Pulse Ox O2 Delivery O2 Flow Rate FiO2 03/06/17 08:00 97.4 66 18 126/70 98 03/06/17 04:30 97.3 69 16 110/70 97 03/05/17 23:35 96.7 69 16 121/78 100 03/05/17 20:40 98.1 69 16 122/71 97 03/05/17 16:00 98.1 61 18 115/69 95 03/05/17 12:00 97.1 70 18 106/61 98 I/O 03/05/17 03/05/17 03/05/17 03/06/17 03/06/17 03/06/17 07:00 15:00 23:00 07:00 15:00 23:00 Intake Total 240 ml 960 ml 480 ml 480 ml Output Total 1300 ml 1050 ml Balance -1060 ml -90 ml 480 ml 480 ml Intake Oral 240 ml 960 ml 480 ml 480 ml Output Urine Total 1300 ml 1050 ml # Voids 2 2 # Bowel Movements 0 1 0 0 Result Diagram: 03/06/17 0530 03/06/17 0530 Objective Remarks GENERAL: in NAD SKIN: Erythema and swelling from the knee down. Tenderness palpation with moderate pressure that improved. A 29.5 cm, B 30 cm, C 47 cm, D 57 HEAD: Normocephalic. EYES: No scleral icterus. No injection or drainage. NECK: Supple, trachea midline. No JVD or lymphadenopathy. CARDIOVASCULAR: Regular rate and rhythm without murmurs, gallops, or rubs. RESPIRATORY: Breath sounds equal bilaterally. No accessory muscle use. GASTROINTESTINAL: Abdomen soft, non-tender, nondistended. MUSCULOSKELETAL: No cyanosis, or edema. BACK: Nontender without obvious deformity. No CVA tenderness. Medications and IVs Current Medications Sodium Chloride (NS 1000 ml Inj) 1,000 ml @ 2,000 mls/hr Q30M ONCE IV Last administered on 03/02/17t 21:40; Start 03/02/17 at 21:30; Stop 03/02/17 at 21:59 ; Status DC Crotalidae Polyvalent Antivenin (Crofab Inj) 6 gm ONCE ONCE IV Last administered on 03/02/17 22:50; Start 03/02/17 at 21:45; Stop 03/02/17 at 21:46 ; Status DC Buspirone HCl (Buspar) 5 mg BID PO Last administered on 03/05/17 19:41; Start 03/03/17 at 09:00 Famotidine 20 mg 20 mg BID PO Last administered on 03/05/17 19:41; Start 03/03 at 09:00 Sodium Chloride (NS 1000 ml Inj) 1,000 ml @ 84 mls/hr [id number] IV Last administered on 03/05/17 12:08; Start 03/02/17 at 22:44 Sodium Chloride (NS Flush) 2 ml UNSCH PRN .XX FLUSH AFTER USING IV ACCESS Last administered on 03/04/17 08:41; Start 03/02/17 at 22:45 Sodium Chloride (NS Flush) 2 ml BID .XX Last administered on 03/05/17 19:41; Start 03/03/17 at 09:00 Morphine Sulfate (Morphine Inj) 2 mg Q2H PRN IV PAIN SCALE 6 TO 10 Last administered on 03/03/17 04:22; Start 03/02/17 at 22:45 Famotidine (Pepcid) 20 mg Q12HR PO ; Start 03/03/17 at 09:00; Stop 03/03/17 at 15:01; Status DC Ondansetron HCl (Zofran Inj) 4 mg Q6H PRN IV NAUSEA OR VOMITING Last administered on 03/03/17 04:22; Start 03/02/17 at 22:45 Metoclopramide HCl (Reglan Inj) 10 mg Q6H PRN IV NAUSEA OR VOMITING; Start at 22:45 Prochlorperazine (Compazine Supp) 25 mg Q12H PRN RECTAL NAUSEA OR VOMITING; Start 03/02/17 at 22:45 Zolpidem Tartrate (Ambien) 5 mg HS PRN PO INSOMNIA; Start 03/02/17 at 22:45 Albuterol/ Ipratropium (Duoneb Neb) 1 ampule Q2HR NEB PRN INH WHEEZING; Start 03/02/17 at 22:45 Heparin Sodium (Porcine) (Heparin Inj) 5,000 units Q12H SQ ; Start 03/02/17 at 23:00; Stop 03/03/17 at 05:38; Status DC Miscellaneous Information 1 Q361D XX Last administered on 03/03/17 12:18; Start 03/02/17 at 22:45 Chlorhexidine Gluconate (Chlorhexidine 2% Cloth) 3 pack Taper DAILY@04 TOP ; Start 03/03/17 at 04:00; Stop 02/27/18 at 03:59 Chlorhexidine Gluconate (Chlorhexidine 2% Cloth) 3 pack UNSCH PRN TOP HYGIENIC CARE; Start 03/02/17 at 22:45 Senna/Docusate Sodium (Shari-Colace) 1 tab BID PO Last administered on 10:21; Start 03/03/17 at 09:00 Magnesium Hydroxide (Milk Of Magnesia Liq) 30 ml Q12H PRN PO MILD - MODERATE CONSTIPATION; Start 03/02/17 at 22:45 Sennosides (Senokot) 17.2 mg Q12H PRN PO MODERATE - SEVERE CONSTIPATION; Start 03/02/17 at 22:45 Bisacodyl (Dulcolax Supp) 10 mg DAILY PRN RECTAL SEVERE CONSITIPATION; Start at 22:45 Lactulose 30 ml 30 ml DAILY PRN PO SEVERE CONSITIPATION; Start 03/02/17 at 22: 45 Crotalidae Polyvalent Antivenin 6 gm/ Sodium Chloride 250 ml @ 250 mls/hr UNSCH X1 IV Last administered on 03/03/17 04:21; Start 03/03/17 at 04:00; Stop 03/03/17 at 06:00; Status DC Crotalidae Polyvalent Antivenin/Sodium Chloride (Crofab Inj/NS 250 ml Inj) 250 ml @ 250 mls/hr UNSCH X1 IV Last administered on 03/03/17 12:17; Start 03/03 at 10:15; Stop 03/03/17 at 18:00; Status DC Oxycodone HCl 10 mg 10 mg Q4H PRN PO PAIN LESS THAN/EQUAL TO 5 Last administered on 03/06/17 05:29; Start 03/03/17 at 15:00 Crotalidae Polyvalent Antivenin/Sodium Chloride (Crofab Inj/NS 250 ml Inj) 250 ml @ 62.5 mls/hr Q4H IV Last administered on 03/04/17 17:04; Start 03/03/17 at 20:00; Stop 03/04/17 at 19:59; Status DC Acetaminophen (Ofirmev Inj) 1,000 mg Q6H PRN IV PAIN SCALE 7 TO 10; Start 03/04 at 11:45 Tramadol HCl 50 mg 50 mg Q6H PRN PO PAIN SCALE 1 TO 5; Start 03/04/17 at 11:45 Crotalidae Polyvalent Antivenin/Sodium Chloride (Crofab Inj/NS 250 ml Inj) 250 ml @ 250 mls/hr Q6H IV Last administered on 03/05/17 12:06; Start 03/04/17 at 23:00; Stop 03/05/17 at 13:45; Status DC A/P Assessment and Plan Status post snakebite-presumable pit viper injury - CroFab dosing per poison center recommendations. Patient completed CroFab per poison control. - d/w poison control over the phone in [place] and they stated they call nurse for results and will continue to monitor. -labs reviewed today with mild improvement. pending recommendations from poison control Coagulopathy - Monitor for signs of bleeding, coag profile improving. - Supportive care - Treating underlying condition with CroFab, currently 4 vials-May repeat pending coagulation panel results with maintenance dosing DVT GI prophylaxis - No pharmacological DVT prophylaxis due to APTT greater than 250 - Regular diet Discharge Planning pending recommendations from poison control Carie Joya MD Mar 06, 2017 09:29
[2017-03-06] MEDS: SODIUM CHLORIDE 0.9% FLUSH 10 ML FLUSH SCH ×2 (09:40→20:50)
[2017-03-06] MEDS: DOCUSATE SODIUM 50 MG/SENNA 8.6 MG TAB PO SCH ×2 (09:40→20:50)
[2017-03-06] MEDS: FAMOTIDINE 20 MG TAB PO SCH ×2 (09:45→20:50)
[2017-03-06] MEDS: busPIRone HCL 5 MG TAB PO SCH ×2 (09:45→20:50)
[2017-03-06] MEDS: SODIUM CHLOR 0.9% 1000 ML INJ 1,000 ML IV SCH ×2 (11:10→20:50)
[2017-03-06 12:00] VITALS: BP 119/67; PULSE 76; RESP 18; TEMP 96.3; O2SAT 99
[2017-03-06 12:47] LABS: APTT (PATIENT) 21.1 SEC (24.3-30.1); PROTHROMBIN TIME - PATIENT 10.7 SEC (9.8-11.6)
[2017-03-06 15:45] VITALS: BP 104/56; PULSE 73; RESP 18; TEMP 97.1; O2SAT 100
[2017-03-06 15:54] LABS: AUTOMATED NEUTROPHIL # 5.3 TH/MM3 (1.8-7.7); BASOPHIL # 0.1 TH/MM3 (0-0.2); BASOPHIL % 0.6 % (0.0-2.0); EOSINOPHIL # 0.2 TH/MM3 (0-0.4); EOSINOPHIL % 2.7 % (0.0-4.0); HEMATOCRIT 28.5 % (39.0-51.0); HEMO FLAGS DIFF FINAL; LYMPH % 22.7 % (9.0-44.0); LYMPHOCYTE # 1.8 TH/MM3 (1.0-4.8); MEAN CELL VOLUME 95.6 FL (80.0-100.0); MEAN CORPUSCULAR HGB CONC 33.5 % (32.0-36.0); MONO % 6.6 % (0.0-8.0); NEUT % 67.4 % (16.0-70.0); PLATELET COUNT 184 TH/MM3 (150-450); RED BLOOD COUNT 2.98 MIL/MM3 (4.50-5.90); RED CELL DISTRIBUTION WIDTH 14.6 % (11.6-17.2); WHITE BLOOD COUNT 7.9 TH/MM3 (4.0-11.0)
[2017-03-06 20:00] VITALS: BP 131/69; PULSE 70; RESP 18; TEMP 97.5; O2SAT 99
[2017-03-07] VITALS: BP 114/68; PULSE 67; RESP 18; TEMP 96.9; O2SAT 99
[2017-03-07] MEDS: CHLORHEXIDINE GLUCONATE 2 % 1 PACK (2 CLOTHS) TOP SCH (00:02)
[2017-03-07 04:00] VITALS: BP 110/63; PULSE 63; RESP 16; TEMP 97.1; O2SAT 97
[2017-03-07 07:04] LABS: AUTOMATED NEUTROPHIL # 4.2 TH/MM3 (1.8-7.7); BASOPHIL # 0.1 TH/MM3 (0-0.2); BASOPHIL % 0.8 % (0.0-2.0); EOSINOPHIL # 0.2 TH/MM3 (0-0.4); EOSINOPHIL % 3.4 % (0.0-4.0); HEMATOCRIT 29.4 % (39.0-51.0); HEMO FLAGS DIFF FINAL; LYMPH % 29.3 % (9.0-44.0); LYMPHOCYTE # 2.1 TH/MM3 (1.0-4.8); MEAN CELL VOLUME 95.8 FL (80.0-100.0); MEAN CORPUSCULAR HEMOGLOBIN 31.5 PG (27.0-34.0); MEAN CORPUSCULAR HGB CONC 32.9 % (32.0-36.0); MONO % 6.5 % (0.0-8.0); PLATELET COUNT 183 TH/MM3 (150-450); RED BLOOD COUNT 3.06 MIL/MM3 (4.50-5.90); RED CELL DISTRIBUTION WIDTH 14.3 % (11.6-17.2)
[2017-03-07 07:17] LABS: PROTHROMBIN TIME - PATIENT 11.2 SEC (9.8-11.6)
[2017-03-07 07:32] LABS: BICARBONATE 28.8 MEQ/L (21.0-32.0); POTASSIUM 3.6 MEQ/L (3.5-5.1)
[2017-03-07 08:00] VITALS: BP 128/82; PULSE 65; RESP 16; TEMP 96.7; O2SAT 99
[2017-03-07] MEDS ORDERED: OXYC1CAP PO (08:57)
--- NOTE | 2017-03-07 08:59 | HHI.DS ---
Discharge Summary Admission Date Mar 02, 2017 at 22:31 Discharge Date: Mar 07, 2017 Admitting Diagnosis snake bite, DIC (1) DIC (disseminated intravascular coagulation) ICD Code: D65 Diagnosis: Principal (2) Snake bite ICD Code: T63.001A Diagnosis: Principal Procedures see hospital course Brief History - From Admission 51-year-old man without any significant past medical history, presents with worsening left leg pain swelling ecchymosis and bruising. He was bitten by a snake on February 22. He believes it was a rattlesnake. He was admitted to [facility] where he received treatment including 28 vials of CroFab. He was hospitalized for about 3-1/2 days or so and was discharged about 5 days ago. He states since discharge he's had swelling is been waxing and waning. He 's had worsening ecchymosis and bruising spreading up the leg. He developed a couple blisters that have been weeping. Pain is been pretty persistent and severe. In the emergency department his LFTs are elevated as well as coagulations and bilirubin. The Poison Control Center was contacted by ER attending with recommendations of another treatment with CroFab. CBC/BMP: 03/07/17 0636 03/07/17 0636 Significant Findings Laboratory Tests Test 03/04/17 03/04/17 03/05/17 03/05/17 12:51 18:18 00:48 11:45 Red Blood Count 2.86 MIL/MM3 2.85 MIL/MM3 2.91 MIL/MM3 2.78 MIL/MM3 (4.50-5.90) (4.50-5.90) (4.50-5.90) (4.50-5.90) Hemoglobin 9.1 GM/DL 9.1 GM/DL 9.3 GM/DL 8.9 GM/DL (13.0-17.0) (13.0-17.0) (13.0-17.0) (13.0-17.0) Hematocrit 27.9 % 27.7 % 27.8 % 26.7 % (39.0-51.0) (39.0-51.0) (39.0-51.0) (39.0-51.0) Platelet Count 130 TH/MM3 129 TH/MM3 126 TH/MM3 136 TH/MM3 (150-450) (150-450) (150-450) (150-450) Monocytes (%) (Auto) 8.7 % (0.0-8.0) Fibrinogen 133 mg/dL 150 mg/dL 159 mg/dL 157 mg/dL (227-377) (227-377) (227-377) (227-377) Activated Partial 23.6 SEC 19.5 SEC Thromboplast Time (24.3-30.1) (24.3-30.1) Potassium Level 3.3 MEQ/L (3.5-5.1) Random Glucose 137 MG/DL (74-106) Calcium Level 8.1 MG/DL (8.5-10.1) Total Bilirubin 1.3 MG/DL (0.2-1.0) Direct Bilirubin 0.3 MG/DL (0.0-0.2) Indirect Bilirubin 1.0 MG/DL (0.0-0.8) Total Protein 5.9 GM/DL (6.4-8.2) Albumin 3.2 GM/DL (3.4-5.0) Test 03/05/17 03/05/17 03/06/17 03/06/17 15:29 18:21 05:30 11:30 Red Blood Count 2.86 MIL/MM3 2.78 MIL/MM3 (4.50-5.90) (4.50-5.90) Hemoglobin 9.3 GM/DL 8.9 GM/DL (13.0-17.0) (13.0-17.0) Hematocrit 28.2 % 26.8 % (39.0-51.0) (39.0-51.0) Platelet Count 116 TH/MM3 (150-450) Activated Partial 22.9 SEC 21.1 SEC Thromboplast Time (24.3-30.1) (24.3-30.1) Fibrinogen 199 mg/dL 199 mg/dL 214 mg/dL (227-377) (227-377) (227-377) Carbon Dioxide Level 32.6 MEQ/L (21.0-32.0) Anion Gap 4 MEQ/L (5-15) Test 03/06/17 03/07/17 15:10 06:36 Red Blood Count 2.98 MIL/MM3 3.06 MIL/MM3 (4.50-5.90) (4.50-5.90) Hemoglobin 9.5 GM/DL 9.7 GM/DL (13.0-17.0) (13.0-17.0) Hematocrit 28.5 % 29.4 % (39.0-51.0) (39.0-51.0) Estimat Glomerular Filtration 86 ML/MIN (>89) Rate Imaging Last Impressions Lower Extremity Ultrasound 03/02/17 0000 Signed Impressions: Service Date/Time: Thursday, March 02, 2017 20:33 - CONCLUSION: No DVT of the left lower extremity. Dwain Morrison MD PE at Discharge GENERAL: in NAD SKIN:. Tenderness palpation with moderate pressure that improved. A 27.5 cm, B 29 cm, C 45 cm, D 52. Mild erythema almost resolved. Sensation is intact. HEAD: Normocephalic. EYES: No scleral icterus. No injection or drainage. NECK: Supple, trachea midline. No JVD or lymphadenopathy. CARDIOVASCULAR: Regular rate and rhythm without murmurs, gallops, or rubs. RESPIRATORY: Breath sounds equal bilaterally. No accessory muscle use. GASTROINTESTINAL: Abdomen soft, non-tender, nondistended. MUSCULOSKELETAL: No cyanosis, or edema. BACK: Nontender without obvious deformity. No CVA tenderness. Pt update on day of discharge Follow-up for viper bite/DIC Patient stated he feels a lot better today. He stated he nows feels relieved the swelling and redness went down a lot today. Patient stated pain is controlled current regimen. He stated that he does have his sensation is normal but he is not able to do full weightbearing on that foot for very long time. He stated that this has improved. Patient remains afebrile. Hospital Course Status post snakebite-presumable pit viper injury -Patient wasn't initially admitted to the ICU due to DIC from viper bite. Patient had failed treatment at [facility]. He was previously treated with CroFab. Poison control contact. - CroFab dosing per poison center recommendations. Patient completed CroFab per poison control. - Throughout the hospital course DIC resolved and patient completed his last CroFab dosage on 03/05/2017. Case was closed at night. -Spoke to poison control on 03/06/2017 for follow-up questions and they stated that patient is clear from their perspective. Recommended elevating leg to help swelling and may monitor labs again with hydration. -On the day of discharge edema improved drastically in which patient was discharged in stable condition. Patient told if any worsening changes to return to the emergency department. DIC - Improved with treatment with CroFab. - Supportive care given. Pt Condition on Discharge: Good Discharge Disposition: Discharge Home Discharge Time: <= 30 minutes Discharge Instructions DIET: Follow Instructions for: As Tolerated, No Restrictions Additional Diet Instructions: Increase fluid/water intake. Stay hydrated. Activities you can perform: See Additionl Instruction Other Activity Instructions: Try to keep left elevated to heart level while sitting or laying down. This will help with swelling. If any worsening of symptoms return to Emergency Department. Follow up Referrals: PCP Follow-up - 1 Week New Medications: Oxycodone (Oxycodone) 5 Mg Cap 5 MG PO Q4H PRN moderate to severe pain #30 Ref 0 CAP Continued Medications: Buspirone (Buspirone) 5 Mg Tab 5 MG PO BID Anxiety Ref 0 TAB Famotidine (Pepcid) 20 Mg Tab 20 MG PO BID #60 Ref 0 TAB Carie Joya MD Mar 07, 2017 08:59
--- NOTE | 2017-03-07 08:59 | HHI.DCPOC ---
Discharge Care Plan Diagnosis: (1) DIC (disseminated intravascular coagulation) (2) Snake bite Goals to Promote Your Health * To prevent worsening of your condition and complications * To maintain your health at the optimal level Directions to Meet Your Goals Take your medications as prescribed Follow your dietary instruction Follow activity as directed Keep your appointments as scheduled Take your immunizations and boosters as scheduled If your symptoms worsen call your PCP, if no PCP go to Urgent Care Center or Emergency Room Smoking is Dangerous to Your Health. Avoid second hand smoke Call the 24-hour hour crisis hotline for domestic abuse at Carie Joya MD Mar 07, 2017 08:59
[2017-03-07] MEDS: SODIUM CHLOR 0.9% 1000 ML INJ 1,000 ML IV SCH (09:59)
[2017-03-07] MEDS: FAMOTIDINE 20 MG TAB PO SCH (10:05)
[2017-03-07] MEDS: busPIRone HCL 5 MG TAB PO SCH (10:05)
[2017-03-07] MEDS: DOCUSATE SODIUM 50 MG/SENNA 8.6 MG TAB PO SCH (10:05)
[2017-03-07] MEDS: SODIUM CHLORIDE 0.9% FLUSH 10 ML FLUSH SCH (10:06)
== END 2017-03-07 11:27 | disposition home or self-care (01) | DRG 949 ==
LOC: NEPC 19:12 → NEDA 22:31 → HIMW 03-03 12:05 → N06A 03-04 21:50
PROVIDERS: ADMIT Family Medicine; ATTEND Family Medicine
PROC: 3E033GC Introduction of Other Therapeutic Substance into Peripheral Vein, Percutaneous Approach (ICD-10-PCS; principal; 2017-03-02)
DX: T63.091D Toxic effect of venom of other snake, accidental (unintentional), subsequent encounter (principal); D65 Disseminated intravascular coagulation [defibrination syndrome]; I45.10 Unspecified right bundle-branch block; M79.605 Pain in left leg
CPT/HCPCS: 80048; 80053; 80076; 81001; 82550; 83605; 83735; 84100; 85007; 85025; 85027; 85384; 85610; 85730; 87641; 93005; 93971; 96360; J0840; J2270; J2405; J7030; J7050

== ENCOUNTER → 2017-03-24 | Outpatient (CLI) | payer OTHER ==
[~2017-03-24] MED LIST: BUSP5TAB PO; FAMO1TAB37 PO; OXYC1CAP PO; OXYC1TAB35 PO
[2017-03-24 11:07] LABS: AUTOMATED NEUTROPHIL # 3.9 TH/MM3 (1.8-7.7); BASOPHIL # 0.1 TH/MM3 (0-0.2); BASOPHIL % 0.8 % (0.0-2.0); EOSINOPHIL # 0.2 TH/MM3 (0-0.4); EOSINOPHIL % 2.9 % (0.0-4.0); HEMO FLAGS DIFF FINAL; LYMPH % 31.4 % (9.0-44.0); LYMPHOCYTE # 2.2 TH/MM3 (1.0-4.8); MEAN CELL VOLUME 95.6 FL (80.0-100.0); MEAN CORPUSCULAR HEMOGLOBIN 32.3 PG (27.0-34.0); MEAN CORPUSCULAR HGB CONC 33.8 % (32.0-36.0); MONO % 8.7 % (0.0-8.0); NEUT % 56.2 % (16.0-70.0); PLATELET COUNT 257 TH/MM3 (150-450); RED BLOOD COUNT 4.29 MIL/MM3 (4.50-5.90); RED CELL DISTRIBUTION WIDTH 14.6 % (11.6-17.2); WHITE BLOOD COUNT 6.9 TH/MM3 (4.0-11.0)
[2017-03-24 11:40] LABS: ALKALINE PHOSPHATASE 76 U/L (45-117); ALT (GPT) 37 U/L (12-78); ANION GAP 8 MEQ/L (5-15); AST (GOT) 30 U/L (15-37); BICARBONATE 29.2 MEQ/L (21.0-32.0); BLOOD UREA NITROGEN 27 MG/DL (7-18); CHLORIDE 101 MEQ/L (98-107); CREATINE KINASE 103 U/L (39-308); GLOMERULAR FILTRATION RATE 69 ML/MIN (>89); GLUCOSE,FASTING 98 MG/DL (74-99); POTASSIUM 4.3 MEQ/L (3.5-5.1); SODIUM (NA) 138 MEQ/L (136-145); TOTAL BILIRUBIN ADULT 0.6 MG/DL (0.2-1.0)
[2017-03-24 12:01] LABS: CKMB 0.7 NG/ML (0.5-3.6)
== END ==
LOC: CLAB 10:39
PROVIDERS: ATTEND Family Medicine
DX: F10.10 Alcohol abuse, uncomplicated (principal); F32.9 Major depressive disorder, single episode, unspecified; R60.9 Edema, unspecified; T63.001A Toxic effect of unspecified snake venom, accidental (unintentional), initial encounter
CPT/HCPCS: 36415; 80053; 82550; 82552; 85025